=== PATIENT | female | born 1995 | race African-American/Black ===

== ENCOUNTER 2021-10-11 04:19 | Day surgery (SDC) | payer OTHER ==
[2021-10-10 12:39] VITALS: BMI 25.5
[2021-10-11] MEDS ORDERED: MIDAZOLAM HCL 2 MG/2 ML SINGLE DOSE VIAL ONE (08:09)
[2021-10-11] MEDS ORDERED: PROPOFOL 20 ML ONE ×2 (08:10→09:01)
[2021-10-11] MEDS ORDERED: ONDANSETRON 4 MG/2 ML VIAL ONE (08:20)
[2021-10-11] MEDS ORDERED: GLYCOPYRROLATE 0.2 MG/1 ML VIAL ONE (08:20)
[2021-10-11] MEDS ORDERED: DEXAMETHASONE SOD PHOSPHATE 4 MG/1 ML VIAL ONE (08:20)
[2021-10-11] MEDS ORDERED: ONDANSETRON 4 MG/2 ML VIAL IVPUSH PRN ×2 (08:37→08:55)
[2021-10-11] MEDS ORDERED: oxyCODONE HCL 5 MG TABLET PO PRN ×2 (08:37→08:55)
[2021-10-11] MEDS ORDERED: LACTATED RINGERS SOLUTION 1,000 ML IV SCH (08:45)
[2021-10-11] MEDS ORDERED: IBUPROFEN 800 MG/8 ML IJ IVPB PRN (08:55)
[2021-10-11] MEDS ORDERED: IBUPROFEN 600 MG TABLET (FP) PO PRN (08:55)
[2021-10-11] MEDS ORDERED: ELECTROLYTE-148 SOLN 1,000 ML IV SCH (09:00)
[2021-10-11] MEDS ORDERED: KETOROLAC TROMETHAMINE 30 MG/1 ML VIAL ONE (09:02)
[2021-10-11] MEDS ORDERED: SILVER NITRATE 75% APPLIC STCK 1 PKT EACH TP ONE (10:24)
[2021-10-11 15:18] VITALS: BP 117/76; PULSE 85; TEMP 97.6
== END 2021-10-11 13:40 | disposition home or self-care (01) ==
LOC: JASU-SURG 04:19
PROVIDERS: ATTEND Obstetrics & Gynecology
PROC: 0UDB7ZZ Extraction of Endometrium, Via Natural or Artificial Opening (ICD-10-PCS; 2021-10-11)
PROC: 0UB98ZX Excision of Uterus, Via Natural or Artificial Opening Endoscopic, Diagnostic (ICD-10-PCS; principal; 2021-10-11 09:00)
DX: N93.9 Abnormal uterine and vaginal bleeding, unspecified (principal); N84.0 Polyp of corpus uteri
CPT/HCPCS: 81025; 88305-TC; 94760

== ENCOUNTER 2022-08-21 23:45 | Inpatient (IN) | payer OTHER ==
[2022-08-22] MEDS ORDERED: AMPICILLIN - 2 GM in SODIUM CHLORIDE 100 ML IVPB STA (01:00)
[2022-08-22] MEDS ORDERED: ELECTROLYTE-148 SOLN 1,000 ML IV SCH ×2 (01:00→08:00)
[2022-08-22] MEDS ORDERED: SODIUM CHLORIDE 100 ML IVPB ONE (01:18)
[2022-08-22] MEDS ORDERED: AMPICILLIN SODIUM 2 GM VIAL ONE (01:18)
[2022-08-22 01:51] LABS: BASO % 0.3 % (0-2.0); EOS % 1.4 % (0-4.5); HEMOGLOBIN 12.9 GM/dL (10.7-15.3); LYMPH % 26.1 % (8-40); MCH 31.4 pg (25.7-33.7); MCHC 34.7 g/dl (32.0-36.0); MEAN CELL VOLUME 90.4 fl (80-96); MEAN PLT VOLUME 8.3 fl (7.5-11.1); MONO % 7.5 % (3.8-10.2); NEUT % 64.7 % (42.8-82.8); PLATELET COUNT 242 10^3/uL (134-434); RBC 4.09 M/mm3 (3.60-5.2)
[2022-08-22 01:54] LABS: EPI CELLS 17 /uL (0-25.1); HYALINE CASTS 0 /uL (0-3.1); PH,URINE 6.5 (5.0-8.0); URINE APPEARANCE CLEAR; URINE BACTERIA 16 /uL (0-1359); URINE BILIRUBIN NEGATIVE (NEGATIVE); URINE COLOR YELLOW; URINE GLUCOSE (UA) NEGATIVE (NEGATIVE); URINE KETONE NEGATIVE (NEGATIVE); URINE LEUK ESTERASE TRACE (NEGATIVE); URINE NITRITE NEGATIVE (NEGATIVE); URINE PROTEIN NEGATIVE (NEGATIVE); URINE RBC 355 /uL (0-23.9); URINE UROBILINOGEN 0.2 mg/dL (0.2-1.0); URINE WBC 26 /uL (0-25.8)
[2022-08-22 02:02] LABS: INR 0.95 (0.83-1.09)
[2022-08-22 02:05] LABS: ACTIVATED PTT 28.7 SECONDS (25.2-36.5)
[2022-08-22 02:10] LABS: POTASSIUM 4.1 mmol/L (3.5-5.1)
[2022-08-22 02:12] LABS: CALCIUM 8.8 mg/dL (8.5-10.1)
[2022-08-22 02:13] LABS: BLOOD UREA NITROGEN 7.2 mg/dL (7-18)
[2022-08-22 02:15] LABS: CREATININE 0.5 mg/dL (0.55-1.3)
[2022-08-22 02:17] LABS: BILIRUBIN,TOTAL 0.2 mg/dL (0.2-1); TOT PROT 6.7 g/dl (6.4-8.2)
[2022-08-22 02:22] LABS: URIC ACID 2.8 mg/dL (2.6-7.2)
[2022-08-22] MEDS ORDERED: BUTORPHANOL TARTRATE 2 MG/ML VIAL ONE (02:41)
[2022-08-22] MEDS ORDERED: PROMETHAZINE HCL 25 MG/1 ML VIAL ONE (02:41)
[2022-08-22] MEDS ORDERED: PROMETHAZINE HCL 25 MG/1 ML VIAL IVPB ONE (02:45)
[2022-08-22] MEDS ORDERED: BUTORPHANOL TARTRATE 1 MG/ML VIAL IVPB ONE (02:45)
[2022-08-22 03:19] LABS: HIV INTERPRETATION NEGATIVE (NEGATIVE)
[2022-08-22] MEDS ORDERED: AMPICILLIN SODIUM 1 GM VIAL ONE ×2 (05:54→10:03)
[2022-08-22] MEDS: AMPICILLIN - 1 GM in SODIUM CHLORIDE 100 ML IVPB SCH ×3 (05:55→14:10)
[2022-08-22] MEDS ORDERED: NALOXONE HCL 0.4 MG/ML VIAL IVPUSH PRN (07:45)
[2022-08-22] MEDS ORDERED: BUPIVACAINE HCL/PF 0.25% (2.5MG/ML) 10 ML VIAL ONE (07:50)
[2022-08-22] MEDS ORDERED: FENTANYL/BUPIVACAINE/NS/PF - PCEA - 50 ML DISP.SYRIN EP ONE (08:03)
[2022-08-22] MEDS: FENTANYL/BUPIVACAINE/NS/PF - PCEA - 50 ML DISP.SYRIN EP SCH (08:10)
[2022-08-22] MEDS ORDERED: OXYTOCIN 20 UNITS in 0.9% NS 20 UNIT/1,000 ML INFUS.BAG IV ONE (10:19)
[2022-08-22] MEDS: OXYTOCIN 30 UNITS in 0.9% NS 30 UNIT/500 ML INFUS.BAG IVPB SCH (10:27)
[2022-08-22] MEDS ORDERED: BISACODYL 10 MG SUPP.RECT RC PRN (13:48)
[2022-08-22] MEDS ORDERED: BENZOCAINE 28 GM HEMORRHOIDAL OINTMENT TP PRN (13:48)
[2022-08-22] MEDS ORDERED: BENZOCAINE 20% 57 GM BOTTLE TP PRN (13:48)
[2022-08-22] MEDS ORDERED: ACETAMINOPHEN 325 MG TABLET (FP) PO PRN (13:48)
[2022-08-22] MEDS ORDERED: METHYLERGONOVINE MALEATE 0.2 MG/1 ML AMP IM PRN (13:48)
[2022-08-22] MEDS ORDERED: WITCH HAZEL 50% (TUCKS) 40 PAD/JAR PAD TP PRN (13:48)
[2022-08-22] MEDS ORDERED: OXYTOCIN 20 UNITS in 0.9% NS 20 UNIT/1,000 ML INFUS.BAG IV SCH (14:00)
[2022-08-22] MEDS ORDERED: IBUPROFEN 600 MG TABLET (FP) PO ONE (14:04)
[2022-08-22] MEDS: IBUPROFEN 600 MG TABLET (FP) PO PRN ×2 (14:05→21:44)
[2022-08-22 15:47] LABS: CORD BASE EXCESS -2.4 mmol/L (0-2); CORD HCO3 25.4 mmHg (20-29); CORD PCO2 55.3 mmHg (30-78); CORD pH 7.28 (7.14-7.44)
[2022-08-22 15:49] LABS: CORD BASE EXCESS -4.1 mmol/L (0-2); CORD HCO3 25.3 mmHg (20-29); CORD PCO2 63.3 mmHg (30-78); CORD pH 7.219 (7.14-7.44)
[2022-08-23 08:23] LABS: BASO % 0.3 % (0-2.0); EOS % 0.8 % (0-4.5); HEMATOCRIT 32.1 % (32.4-45.2); LYMPH % 17.5 % (8-40); MCH 31.2 pg (25.7-33.7); MCHC 34.1 g/dl (32.0-36.0); MEAN CELL VOLUME 91.4 fl (80-96); MEAN PLT VOLUME 8.3 fl (7.5-11.1); MONO % 6.7 % (3.8-10.2); NEUT % 74.7 % (42.8-82.8); PLATELET COUNT 232 10^3/uL (134-434); RBC 3.51 M/mm3 (3.60-5.2); RDW 15.1 % (11.6-15.6)
[2022-08-23] MEDS: IBUPROFEN 600 MG TABLET (FP) PO PRN ×2 (09:31→21:17)
[2022-08-23] MEDS ORDERED: SIMETHICONE 80 MG TAB.CHEW (FP) PO PRN (09:41)
[2022-08-23] MEDS ORDERED: FLU VACC QS2022-23(6MOS UP)/PF 60 MCG/0.5 ML SYRINGE IM ONE (10:00)
[2022-08-23] MEDS: OXYTOCIN 30 UNITS in 0.9% NS 30 UNIT/500 ML INFUS.BAG IVPB SCH (11:24)
[2022-08-23] MEDS: FENTANYL/BUPIVACAINE/NS/PF - PCEA - 50 ML DISP.SYRIN EP SCH (11:49)
[2022-08-23] MEDS ORDERED: SENNOSIDES/DOCUSATE COMBO (SENNA PLUS) TABLET (UD) PO PRN (22:00)
[2022-08-24 10:15] VITALS: BP 134/81; PULSE 84; RESP 18; TEMP 98.6
[2022-08-24] MEDS: IBUPROFEN 600 MG TABLET (FP) PO PRN (10:41)
== END 2022-08-24 11:45 | disposition home or self-care (01) | DRG 807 ==
LOC: JDEL 23:45 → JLDR 08-22 00:10 → J3W 08-22 14:40
PROVIDERS: ADMIT Obstetrics & Gynecology; ATTEND Obstetrics & Gynecology
PROC: 0UQMXZZ Repair Vulva, External Approach (ICD-10-PCS; principal; 2022-08-22)
PROC: 10E0XZZ Delivery of Products of Conception, External Approach (ICD-10-PCS; 2022-08-22)
DX: O71.82 Other specified trauma to perineum and vulva (principal); Z37.0 Single live birth; Z3A.37 37 weeks gestation of pregnancy
CPT/HCPCS: 36415; 36600; 80053; 81003; 82570; 82803; 82977; 83010; 84156; 84550; 85025; 85045; 85610; 85730; 86780; 86850; 86900; 86901; 87340; 87389; C9803-CS; G0008; Q2036; U0003; U0005